=== PATIENT | male | born 1955 | race Caucasian/White ===

== ENCOUNTER 2018-04-21 21:49 | Emergency (ER) | payer BC ==
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
== END 2018-04-21 23:42 | disposition home or self-care (01) ==
LOC: ER 21:49
DX: S20.212A Contusion of left front wall of thorax, initial encounter (principal); S40.012A Contusion of left shoulder, initial encounter; I10 Essential (primary) hypertension; V48.0XXA Car driver injured in noncollision transport accident in nontraffic accident, initial encounter; Y92.008 Other place in unspecified non-institutional (private) residence as the place of occurrence of the external cause
CPT/HCPCS: 99283

== ENCOUNTER 2018-07-31 23:57 | Emergency (ER) | payer BC ==
--- NOTE | 2018-08-01 00:12 | Emergency Department Record ---
History of Present Illness - General Chief complaint: Flank Pain Stated complaint: FLANK PAIN Time Seen by Provider: 08/01/18 00:00 Source: Patient Mode of Arrival: Ambulatory Limitations: No limitations - History of Present Illness Initial comments: 62 yo male presents to ED for evaluation of flank pain symptoms that began 4 hours ago, patient reports that his pain symptoms have been progressively worsening. Patient reports similar symptoms related to kidney stones, denies fevers, chills, or dysuria symptoms. Patient reports that he has drank approximately 48 oz of water prior to arrival to attempt to "flush the stone out ", denies abdominal pain symptoms. MD Complaint: Other Onset/Timin -: Hour(s) Location: Left flank Radiation: Suprapubic Severity: Moderate Quality: Aching Consistency: Constant Improves with: None Worsens with: None Reports: Denies other symptoms - Related Data Home Medications Medication Instructions Recorded Confirmed Last Taken Cholecalciferol (Vitamin D3) 2,000 unit PO DAILY 08/01/18 08/01/18 07/31/18 [Vitamin D3] Dulaglutide [Trulicity] 0.75 mg SQ WEEKLY 08/01/18 08/01/18 07/31/18 Ubidecarenone [Coq-10] 100 mg PO DAILY 08/01/18 08/01/18 07/31/18 Previous Rx's Medication Instructions Recorded Tamsulosin HCl [Flomax] 0.4 mg PO DAILY #15 cap.er.24h 08/01/18 Allergies Allergy/AdvReac Type Severity Reaction Status Date / Time amoxicillin AdvReac ABDOMINAL Verified 08/01/18 00:34 PAIN Travel Screening - Travel/Exposure Within Last 30 Days Have you traveled within the last 30 days?: No Review of Systems Constitutional: Denies: Chills, Fever, Malaise, Night sweats Eyes: Denies: Eye discharge, Eye pain ENT: Denies: Congestion, Ear pain, Epistaxis Respiratory: Denies: Cough, Dyspnea Cardiovascular: Denies: Chest pain, Dyspnea on exertion Endocrine: Denies: Fatigue, Heat or cold intolerance Gastrointestinal: Denies: Abdominal pain, Constipation, Nausea, Vomiting Genitourinary: Denies: Hematuria, Incontinence, Retention, Testicular pain Musculoskeletal: Reports: Back pain. 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 - CARDIOVASCULAR Hx Cardio Disorders: Yes Hx Hypertension: Yes - NEURO Hx Neuro Disorders: No - GI Hx GI Disorders: No - Hx Genitourinary Disorders: Yes Hx Kidney Stones: Yes (hx) - ENDOCRINE Hx Endocrine Disorders: Yes Hx Diabetes: Yes - MUSCULOSKELETAL Hx Musculoskeletal Disorders: No - PSYCH Hx Psych Problems: No - HEMATOLOGY/ONCOLOGY Hx Hematology/Oncology Disorders: No Family Medical History Any Significant Family History?: Yes Hx Anxiety: Brother/Sister Hx Cancer: Father *Cancer Comment: prostate, bladder, colon, CA Hx Dementia: Mother Hx Heart Disease: Father Hx Kidney Disease: Brother/Sister *Kidney Comment: renal stones Physical Exam - General General Appearance: Alert, Oriented x3, Cooperative, Moderate distress Limitations: No limitations - Head Head exam: Atraumatic, Normocephalic, Normal inspection Head exam detail: negative: Abrasion, Contusion, Mckoy's sign, General tenderness, Hematoma, Laceration - Eye Eye exam: Normal appearance. negative: Conjunctival injection, Periorbital swelling, Periorbital tenderness, Scleral icterus - ENT Ear exam: negative: Auricular hematoma, Auricular trauma Nasal Exam: negative: Active bleeding, Discharge, Dried blood, Foreign body Mouth exam: negative: Drooling, Laceration, Muffled voice, Tongue elevation - Neck Neck exam: Normal inspection. negative: Meningismus, Tenderness - Respiratory Respiratory exam: Normal lung sounds bilaterally. negative: Rales, Respiratory distress, Rhonchi, Stridor - Cardiovascular Cardiovascular Exam: Regular rate, Normal rhythm, Normal heart sounds - GI/Abdominal GI/Abdominal exam: Soft. negative: Rebound, Rigid, Tenderness - Rectal Rectal exam: Deferred - exam: Deferred - Extremities Extremities exam: Normal inspection. negative: Calf tenderness, Pedal edema, Tenderness - Back Back exam: Reports: CVA tenderness (L). Denies: CVA tenderness (R) - Neurological Neurological exam: Alert, Normal gait, Oriented X3 - Psychiatric Psychiatric exam: Normal affect, Normal mood - Skin Skin exam: Normal color. negative: Abrasion Type of lesion: negative: abrasion Course - Reevaluation(s) Reevaluation #1: 08/01/18 00:40 Laboratory studies were reviewed, GFR 51, labs are otherwise grossly unremarkable for an acute process. UA pending. Reevaluation #2: 08/01/18 00:51 CT Abdomen and Pelvis: Distal 4.2 mm ureteral calculus resulting in mild obstruction Patient was reassessed, reports improvement in his pain symptoms. Awaiting UA to exclude infection. Reevaluation #3: 08/01/18 01:14 UA reviewed and appears negative except for moderate blood. Patient reports that his pain symptoms are well controlled, appears stable for discharge at this time. Medical Decision Making - Lab Data Result diagrams: 08/01/18 00:10 08/01/18 00:10 Disposition Disposition: Discharge Clinical Impression: Ureteral calculus, left Disposition: Home, Self-Care Condition: (2) Stable Instructions: Kidney Stones (ED) Additional Instructions: Return to ED if your symptoms worsen or if you have any concerns. Follow-up with your family doctor in 3-5 days as directed. Prescriptions: Tamsulosin HCl [Flomax] 0.4 mg PO DAILY #15 cap.er.24h Forms: Patient Portal Access Time of Disposition: 01:15 Quality - Quality Measures Quality Measures: N/A - Blood Pressure Screening Does Patient Have Any of the Following: Active Dx of HTN Blood Pressure Classification: Hypertensive Reading Systolic Measurement: 150 Diastolic Measurement: 93 Screening for High Blood Pressure: Patient Exclusion, Hx of HTN [G9744]
[2018-08-01] MEDS: 0.9 % SODIUM CHLORIDE 1000ML 1,000 ML IV SCH (00:17)
[2018-08-01] MEDS: KETOROLAC 30 MG/ML VIAL IVP ONE (00:18)
[2018-08-01 00:21] LABS: BASO % 0.3 % (0-6); EOS % 2.5 % (0-6); GRAN % 64.1 % (47-80); HEMATOCRIT 42.9 % (42.0-52.0); HEMOGLOBIN 14.1 gm/dl (14.0-18.0); LYMPH % 26.6 % (16-45); MEAN CELL VOLUME 89.7 fl (81-97); MEAN CORPUSCULAR HEMOGLOBIN 29.5 pg (27-33); MEAN CORPUSCULAR HGB CONC 32.9 g/dl (32-36); MEAN PLATELET VOLUME 10.2 fl (7.4-10.4); MONO % 6.5 % (0-9); PLATELET COUNT 249 K/uL (130-400); RED BLOOD COUNT 4.78 M/uL (4.40-5.70); RED CELL DISTRIBUTION WIDTH 13.4 % (11.5-14.5); WHITE BLOOD COUNT W/O DIFF 10.5 K/uL (4.2-12.2)
[2018-08-01 00:28] LABS: BILIRUBIN,TOTAL 0.5 mg/dL (0.2-1.0); CREATININE 1.5 mg/dL (0.7-1.2)
[2018-08-01 00:29] LABS: TOTAL PROTEIN 6.9 g/dL (6.6-8.7)
[2018-08-01 00:34] LABS: ALB/GLOB RATIO 1.5 (1.1-1.8); ALBUMIN 4.1 g/dL (4.0-5.0)
[2018-08-01] MEDS: TAMSULOSIN HCL 0.4 MG CAP.ER.24H PO ONE (01:07)
[2018-08-01 01:10] LABS: URINE APPEARANCE CLEAR; URINE BILIRUBIN NEGATIVE (NEGATIVE); URINE BLOOD MODERATE (NEGATIVE); URINE COLOR YELLOW; URINE GLUCOSE (UA) NEGATIVE (NEGATIVE); URINE KETONE NEGATIVE (NEGATIVE); URINE LEUKOCYTE ESTERASE NEGATIVE (NEGATIVE); URINE NITRITE NEGATIVE (NEGATIVE); URINE PROTEIN NEGATIVE (NEGATIVE); URINE UROBILINOGEN 0.2 E.U./dL (0.20 - 1.00)
[2018-08-01 01:16] LABS: URINE BACTERIA NONE SEEN; URINE EPITHELIAL CELLS 0 - 2 (FEW); URINE RBC 16 - 25 (NONE SEEN); URINE WBC 0 - 2 (0-2/hpf)
--- NOTE | 2018-08-02 08:34 | CT SCAN REPORT ---
EXAM: NONCONTRAST CT OF THE ABDOMEN AND PELVIS HISTORY: LEFT FLANK PAIN. TECHNIQUE: Noncontrast CT of the abdomen and pelvis was obtained. Comparison: CT of the abdomen and pelvis 06/22/15. FINDINGS: The lung bases are clear. Unremarkable noncontrast appearance of the liver, spleen, adrenal glands, and pancreas. The gallbladder is contracted. Mild left hydronephrosis with 2 x 4 mm calculus in the distal left ureter, above the ureterovesicular junction. No additional calculi detected. No right hydronephrosis. Stable appearance of isodense right renal cortical exophytic lesion since 2014 study likely representing a proteinaceous cyst. The stomach and small bowel are not dilated. No focal colonic thickening or inflammatory changes. The appendix is normal. No free air or free fluid in the abdomen or pelvis. Scattered calcifications of the aortoiliac arterial access without evidence of aneurysmal dilatation. No mesenteric or retroperitoneal lymphadenopathy detected. No acute osseous findings. No aggressive focal bone lesions. Tiny fat containing umbilical hernia is again noted. IMPRESSION: 1. DISTAL LEFT URETERAL 3 MM CALCULUS RESULTING IN MILD LEFT HYDRONEPHROSIS. 2. ADDITIONAL INCIDENTAL/CHRONIC FINDINGS, DISCUSSED IN THE BODY OF THE REPORT. JOB NUMBER: [id number] [facility]
== END 2018-08-01 01:25 | disposition home or self-care (01) ==
LOC: ER 23:57
DX: N20.1 Calculus of ureter (principal); E11.9 Type 2 diabetes mellitus without complications; I10 Essential (primary) hypertension
CPT/HCPCS: 99284 ×2; 96374; 96361; 85025; 80053; 81001; 74176; J1885; J7030